=== PATIENT | female | born 1960 | race Caucasian/White ===

== ENCOUNTER → 2021-09-01 | Outpatient (CLI) | payer OTHER ==
[~2021-09-01] MED LIST: AMBIEN5 MG PO; ATENOLOL25 MG PO; ATIVAN0.5 MG PO; ATIVAN1 MG PO; ATIVAN2 MG PO; BRIN20TA PO; BUSPAR10 MG PO; CLONAZEPAM1 MG PO; CLONAZEPAM2 MG PO; COGENTIN1 MG PO; DEPAKOTE DR500 MG PO; DIVALPROEX SOD250 M1 PO; HUMALOG 751 UNIT/0.0 SC; KLONOPIN1 MG PO; LATU60TA PO; LISINOPRIL2.5 MG PO; LOVASTATIN10 MG PO; MEGACE 40400 MG/10 PO; METFORMIN850 MG PO; Mysoline50 MG PO; PROPRANOLOL10 MG PO; Percocet 325 MG1 TAB PO; QUETIAPINE FUM400 MG PO; SEROQUEL400 MG PO; TEMAZEPAM15 MG; VITAMIN D50000 I1 PO; VIVELLE-DO0.05 MG/24 TD; XANAX0.25 MG PO; ZYPREXA20 MG PO
== END | disposition home or self-care (01) ==
LOC: RAD 08:48
PROVIDERS: ATTEND Internal Medicine
DX: M81.0 Age-related osteoporosis without current pathological fracture (principal)